=== PATIENT | female | born 1985 | race American Indian/Alaskan Native ===

== ENCOUNTER 2016-12-17 14:50 | Emergency (ER) | payer BC, MEDICAID ==
[2016-12-17 16:28] LABS: Basophils % (Auto) 1.1 % (0.0-1.8); Eosinophils % (Auto) 2.7 % (0.0-4.3); Hematocrit 37.3 % (30.3-42.9); Hemoglobin 12.3 gm/dl (10.1-14.3); Mean Corpuscular HGB Conc 33 % (30-34); Mean Corpuscular Hemoglobin 27 pg (28-32); Mean Corpuscular Volume 82 fl (79-97); Platelet Count 288 K/mm3 (140-440); Red Blood Count 4.57 M/mm3 (3.65-5.03); Red Cell Distribution Width 15.9 % (13.2-15.2); White Blood Count 5.4 K/mm3 (4.5-11.0)
[2016-12-17 16:31] LABS: Anion Gap 17 mmol/L; BUN/Creatinine Ratio 12.85; Blood Urea Nitrogen 9 mg/dL (7-17); Calcium 9.2 mg/dL (8.4-10.2); Carbon Dioxide 25 mmol/L (22-30); Chloride 105.4 mmol/L (98-107); Glucose 92 mg/dL (65-100); Sodium 143 mmol/L (137-145)
[2016-12-17 16:46] LABS: Bilirubin,Urine NEG (Negative); Blood,Urine LG (Negative); Ketones,Urine NEG (Negative); Leukocyte Esterase,Urine NEG (Negative); Mucus,Urine FEW /HPF; Nitrite,Urine NEG (Negative); Protein,Urine <15 mg/dL mg/dL (Negative); Urobilinogen,Urine < 2.0 mg/dL (<2.0); WBC,Urine < 1.0 /HPF (0.0-6.0)
--- NOTE | 2016-12-17 17:27 | Cat Scan Report ---
FINAL REPORT PROCEDURE: CT HEAD/BRAIN WO CON TECHNIQUE: Computerized tomography of the head was performed without contrast material. HISTORY: pain/blurred vision COMPARISON: No prior studies are available for comparison. FINDINGS: The visualized portions of the paranasal sinuses are clear. Mastoid air cells are clear. There is no calvarial fracture. There is no hydrocephalus. No acute intracranial hemorrhage or mass effect is seen. There is no evidence of acute CVA. IMPRESSION: No abnormalities are seen.
[2016-12-17] MEDS ORDERED: CATAPRES PO ONE (17:44)
--- NOTE | 2016-12-17 18:33 | Emergency Department Report ---
HPI - General Chief Complaint: High BP Time Seen by Provider: 12/17/16 18:13 ED Past Medical Hx - Past Medical History Previous Medical History?: Yes Hx Hypertension: Yes (with ) - Surgical History Past Surgical History?: Yes Additional Surgical History: x 4 - Social History Smoking Status: Never Smoker Substance Use Type: Non Opiate Pain ED Review of Systems ROS: Stated complaint: BP HIGH Other details as noted in HPI Physical Exam - Physical Exam Vital Signs: Vital Signs 12/17/16 15:52 Temperature 98.6 F Pulse Rate 83 Respiratory 20 Rate Blood Pressure 171/105 O2 Sat by Pulse 99 Oximetry ED Course Vital Signs 12/17/16 15:52 Temperature 98.6 F Pulse Rate 83 Respiratory 20 Rate Blood Pressure 171/105 O2 Sat by Pulse 99 Oximetry ED Medical Decision Making - Lab Data Result diagrams: 12/17/16 16:10 12/17/16 16:10 Critical care attestation.: If time is entered above; I have spent that time in minutes in the direct care of this critically ill patient, excluding procedure time. ED Disposition Condition: Stable Referrals: PRIMARY MD IRISH [Primary Care Provider] - 3-5 Days
[2016-12-17] MEDS ORDERED: BENADRYL PO ONE (18:35)
[2016-12-17] MEDS ORDERED: REGLAN PO ONE (18:35)
[2016-12-17 18:44] VITALS: BP 153/100
--- NOTE | 2016-12-17 19:28 | Emergency Department Report ---
Entered by AL FLYNN, acting as scribe for YO CARDOZO PA. ED Headache HPI - General Chief Complaint: High BP Stated Complaint: BP HIGH Time Seen by Provider: 12/17/16 18:18 Source: patient Exam Limitations: no limitations - History of Present Illness Initial Comments: 31 y/o female with a PMHx of PIH presents to the ED c/o elevated blood pressure that began today. Patient works in [employer] and notes her blood pressure was 170/104 at 14:20 when check in the ED. Reports associated frontal headache and blurry vision, but she denies stiff neck, dizziness, chest pain, nausea, vomiting, fever, and chills. Rates headache a 6/10 in severity, which she describes as aching in quality. Aggravated with movement and alleviated with inactivity. Denies wearing glasses and contacts. Patient states the last time she checked her blood pressure was in June during her . Denies taking at home medication or HTN medications. NKDA. Timing/Duration: 4-6 hours Quality: moderate Head Injury Location: frontal Recent Head Trauma: no recent headache/trauma Modifying Factors: improves with: immobilization. worse with: movement Associated Symptoms: denies symptoms. denies: confusion, fatigue, facial pain, fever/chills, flushing, loss of consciousness, nausea/vomiting, nasal congestion , nasal drainage, numbness in legs/feet, rash, seizures, sinus infection, stiff neck, vision changes, weakness Allergies/Adverse Reactions: Allergies No Known Allergies Allergy (Unverified 04/29/16 20:35) Home Medications: Ambulatory Orders Ibuprofen [Motrin] 800 mg PO Q8HR PRN #30 tablet 12/17/16 amLODIPine [Norvasc] 5 mg PO DAILY #30 tab 12/17/16 ED Review of Systems Comment: All other systems reviewed and negative Constitutional: denies: chills, diaphoresis, fever, weakness Eyes: vision change (blurry vision). denies: eye pain, eye discharge ENT: denies: ear pain, throat pain Respiratory: denies: cough, orthopnea, shortness of breath, SOB with exertion, SOB at rest, stridor, wheezing Cardiovascular: denies: chest pain, palpitations Endocrine: no symptoms reported Gastrointestinal: denies: abdominal pain, nausea, vomiting, diarrhea Musculoskeletal: denies: back pain, joint swelling, arthralgia Skin: denies: rash, lesions Neurological: headache. denies: weakness, numbness, paresthesias, confusion, abnormal gait, vertigo ED Past Medical Hx - Past Medical History Previous Medical History?: Yes Hx Hypertension: Yes (with ) - Surgical History Past Surgical History?: Yes Additional Surgical History: x 4 - Social History Smoking Status: Never Smoker Substance Use Type: Non Opiate Pain - Medications Home Medications: Home Medications Medication Instructions Recorded Confirmed Last Taken Type Ibuprofen [Motrin] 800 mg PO Q8HR PRN #30 tablet 12/17/16 Unknown Rx amLODIPine [Norvasc] 5 mg PO DAILY #30 tab 12/17/16 Unknown Rx ED Physical Exam - General Limitations: No Limitations General appearance: alert, in no apparent distress - Head Head exam: Present: atraumatic, normocephalic, other (frontal tenderness) - Eye Eye exam: Present: normal appearance, PERRL, EOMI. Absent: scleral icterus, conjunctival injection Pupils: Present: normal accommodation - ENT ENT exam: Present: normal exam, mucous membranes moist, normal external ear exam - Neck Neck exam: Present: normal inspection, full ROM. Absent: tenderness, meningismus, lymphadenopathy - Respiratory Respiratory exam: Present: normal lung sounds bilaterally. Absent: respiratory distress, wheezes, rales, rhonchi, stridor, chest wall tenderness, accessory muscle use, decreased breath sounds - Cardiovascular Cardiovascular Exam: Present: regular rate, normal rhythm, normal heart sounds. Absent: systolic murmur, diastolic murmur, rubs, gallop - GI/Abdominal GI/Abdominal exam: Present: soft, normal bowel sounds. Absent: distended - Extremities Exam Extremities exam: Present: normal inspection, full ROM, normal capillary refill. Absent: tenderness, pedal edema, joint swelling - Back Exam Back exam: Present: normal inspection, full ROM. Absent: tenderness, CVA tenderness (R), CVA tenderness (L), muscle spasm, paraspinal tenderness, vertebral tenderness - Neurological Exam Neurological exam: Present: alert, oriented X3, CN II-XII intact, normal gait, reflexes normal. Absent: motor sensory deficit - Psychiatric Psychiatric exam: Present: normal affect, normal mood - Skin Skin exam: Present: warm, dry, intact. Absent: rash ED Course Vital Signs 0712/17/16 12/17/16 15:52 18:43 18:44 Temperature 98.6 F Pulse Rate 83 79 79 Respiratory 20 20 Rate Blood Pressure 171/105 153/100 Blood Pressure 153/100 [Right] O2 Sat by Pulse 99 100 Oximetry ED Medical Decision Making - Lab Data Result diagrams: 12/17/16 16:10 12/17/16 16:10 - Medical Decision Making 31-year-old female presents with a headache secondary to elevated blood pressure for today ED course: Patient had a CT scan taken of head. CT scan of the head was negative no acute process. Patient was given medication to reduce headache. Blood pressure decreased prior to administration of clonidine blood pressure dropped to 150/100 Discussed the patient's his blood pressure decreasing to give patient some supply of blood pressure medication This patient to follow up for blood pressure management Patient is not ill-appearing. Discussed the follow-up for a PCP as referred. Discuss her symptoms return or worsen to return to the ED Patient states understanding and will follow instructions. Vital signs stable. Patient is in no acute distress. ED Disposition Clinical Impression: Elevated blood pressure reading Migraine headache without aura Qualifiers: Status migrainosus presence: without status migrainosus Intractability: not intractable Qualified Code(s): G43.009 - Migraine without aura, not intractable , without status migrainosus Disposition: DC-01 TO HOME OR SELFCARE Is pt being admited?: No Does the pt Need Aspirin: No Condition: Stable Instructions: Hypertension (ED), Low Sodium Diet (ED) Prescriptions: amLODIPine [Norvasc] 5 mg PO DAILY #30 tab Ibuprofen [Motrin] 800 mg PO Q8HR PRN #30 tablet PRN Reason: Pain Referrals: PRIMARY CARE,MD [Primary Care Provider] - 3-5 Days [facility] [Outside] - 3-5 Days [facility] [Outside] - 3-5 Days [facility] [Outside] - 3-5 Days Forms: Work/School Release Form(ED) Time of Disposition: 19:02 This documentation as recorded by the GEE lópez JASMINE,accurately reflects the service I personally performed and the decisions made by ,YO CARDOZO PA.
== END 2016-12-17 19:24 | disposition home or self-care (01) ==
LOC: ED 14:50
DX: G43.909 Migraine, unspecified, not intractable, without status migrainosus (principal); R03.0 Elevated blood-pressure reading, without diagnosis of hypertension
CPT/HCPCS: 36415; 70450; 80048; 81001; 84702; 85025; 99284